=== PATIENT | male | born 1960 | race Caucasian/White ===

== ENCOUNTER 2024-11-21 21:50 | Emergency (ER) | payer MEDICARE, OTHER, SELFPAY ==
[2024-11-21] VITALS (15 sets, daily range): BP systolic 126–152; BP diastolic 77–86; PULSE 77–101; TEMP 36.7; O2SAT 92–99; BMI 39.3
--- NOTE | 2024-11-21 22:00 | ECG_ITS ---
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 Measurements Intervals Reading Rate: 77 P: 20 MT: 170 QRS: -42 QRSD: 86 T: 60 QT: 358 QTc: 390 Interpretive Statements 1100 Sinus rhythm 1108 Marked sinus arrhythmia 3234 Anteroseptal myocardial infarction, age undetermined 7200 Abnormal left axis deviation 9150 abnormal ECG No previous ECG available for comparison Electronically Signed On 11-22-2024 18:30:13 EDT by ELIEZER CHACON M.D.
--- NOTE | 2024-11-21 22:23 | XR_ITS ---
The [place] [id number] Patient Name: BRAVO DONAHUE MRN: [id number] date: 1960 Sex: M Assigned Patient Location: ED.MAIN Current Patient Location: ED.MAIN Accession/Order Number: [id number] Exam Date: 11/21/2024 23:24 Report Date: 11/21/2024 23:25 At the request of: DIANA HAYWOOD DO Procedure: XR chest 1V PA CHEST: CLINICAL HISTORY: cp COMPARISON: None The heart is normal in size. The lungs are clear. The pulmonary vasculature is normal. Mediastinum and hilar regions are unremarkable. No pleural effusions are seen. Visualized bones are intact. XR/XR chest 1V IMPRESSION: NEGATIVE ACUTE PLEURAL-PARENCHYMAL DISEASE Impression dictated by: Johnson Cuenca M.D. 11/21/2024 11:25 PM Dictation Location: [place] [address] Electronically authenticated by: [id number] Y Date: 11/21/2024 23:25
--- NOTE | 2024-11-21 22:24 | CT_ITS ---
The [address] [address] Patient Name: BRAVO DONAHUE MRN: [id number] date: 1960 Sex: M Assigned Patient Location: ED.MAIN Current Patient Location: ED.MAIN Accession/Order Number: [id number] Exam Date: 11/21/2024 23:25 Report Date: 11/21/2024 23:29 At the request of: DIANA HAYWOOD DO Procedure: CT abdomen pelvis w con CT ABDOMEN AND PELVIS WITH INTRAVENOUS CONTRAST: CLINICAL HISTORY: abdominal pain COMPARISON: None TECHNIQUE: Spiral images were obtained through the abdomen and pelvis following the administration of intravenous contrast. This CT exam was performed using one or more following dose reduction techniques: Automated exposure control, adjustment of the mA and/or kV according to patient size, or use of iterative reconstruction technique. FINDINGS: Lung Bases: [Lung bases are clear.] Organs:Liver, spleen, gallbladder, adrenals, and pancreas are unremarkable. Bilateral renal cysts. Bilateral parapelvic cysts. No definite hydronephrosis. Kidneys otherwise symmetric in size and enhancement.[ GI: Mild retained stool throughout the colon. No bowel obstruction. Colonic diverticulosis. No CT findings acute diverticulitis. Appendix unremarkable.[Small hiatal hernia. Pelvis:[Bladder unremarkable. Prostate unremarkable.] Peritoneum/Retroperitoneum:No free air or free fluid. Aortic vascular disease. No bulky adenopathy.[ Abd wall/Bones:Posterior changes L5-S1. Anterolisthesis L5 on S1 noted measuring 8 mm. Moderate severe foraminal narrowing at L5-S1. There are junction degenerative changes at L4-[address]/CT abdomen pelvis w con IMPRESSION: Negative acute inflammatory process or bowel obstruction. Colonic diverticulosis. Impression dictated by: Johnson Cuenca M.D. 11/21/2024 11:29 PM Dictation Location: [place] [address] Electronically authenticated by: [id number] Y Date: 11/21/2024 23:29
--- NOTE | 2024-11-21 22:26 | ED_ITS ---
HPI HPI - General Adult General Chief complaint: Nausea/Vomiting/Diarrhea Stated complaint: WEAKNESS Time Seen by Provider: 11/21/24 22:03 Source: patient Mode of arrival: Wheelchair Limitations: no limitations History of Present Illness HPI narrative: The patient is a 64-year-old male from [place] who has a history of diabetes mellitus. He is presenting to the emergency department today for not feeling well. The patient stated he woke up in his normal state of health and it was not until 3 PM this afternoon that he started to feel poorly. His symptoms included global weakness without any focal neurologic deficits. The patient states that he feels shaky. He then developed nausea and has vomited 4 times prior to coming to the emergency department. He stated he was retching very hard his first 2 episodes. By the time he vomited the fourth time there was little blood flecks present. Patient denied any diarrhea. Since being in the emergency department for 10 minutes, he has developed pain in the right side of his abdomen. It is diffusely located on the right side. It does not radiate or move anywhere. Pain is mild to moderate in severity. Unknown what makes it wor se. Nothing makes it better. Patient denies any fever or chills. No sick contacts. He has just recently traveled here from [place]. Prior to today he has been in his usual state of health. His blood sugars has been running per his normal. He did eat Barbara's feel she is rooming that it was secondary to his diabetes. Related Data Previous Rx's ?Medication ?Instructions ?Recorded ondansetron 4 mg disintegrating 4 mg PO Q4H PRN nausea and 11/22/24 tablet vomiting #14 tabs pantoprazole 40 mg tablet,delayed 40 mg PO DAILY 4 wee ks #28 tabs 11/22/24 release (Protonix) Allergies Allergy/AdvReac Type Severity Reaction Status Date / Time metformin Allergy Intermediate Diarrhea Verified 11/21/24 22:05 Review of Systems ROS Narrative 10 Systems were reviewed, and unless not ed in the HPI, all other systems are reviewed, unremarkable, or noncontributory. PFS PFS Social History Little interest or pleasure in doing things: not at all Feeling down, depressed, or hopeless: not at all Exam Narrative Exam Narrative: Prior to examining the patient, I have washed with hospital approved and provided Antiseptic Hand Equity Analyst and have also applied gloves.? Prior to touching the patient, I asked for consent to examine the patient.? General: Alert and oriented, well nourished, mild distress. obese. warm to touch Eye: PERRL, EOMI, normal conjunctiva. HENT: Normocephalic, normal hearing, moist oral mucosa, no scleral icterus, no sinus tenderness. Neck: Supple, non-tender, no carotid bruits, no JVD, no lymphadenopathy. Lungs: Clear to auscultation and percussion, non-labored respiration. Heart: Normal rate, regular rhythm, no murmur, gallop. +2 pitting edema to the knees bilaterally Abdomen: Soft, non-tender, non-distended, normal bowel sounds, no masses. Musculoskeletal: Normal range of motion and strength, no tenderness or swelling. Skin: Skin is warm, dry and pink, no rashes or lesions. + gynecomastia Neurologic: Awake, alert, and oriented X3, CN II-XII intact. Psychiatric: Cooperative, appropriate mood and affect.? Following the conclusion of the examination, I have washed my hands thoroughly after removing examination gloves. Constitutional Vital Signs, click to edit/add: Last Vital Signs Temp 98.0 F 11/21/24 21:53 Pulse 96 H 11/21/24 23:40 Resp 23 H 11/21/24 23:40 BP 126/78 11/21/24 23:31 Pulse Ox 92 L 11/21/24 23:40 O2 Del Method Room Air 11/21/24 21:53 Course Course Hospital Course: 22:29 Patient was evaluated and we are beginning commencing the sepsis protocol. I am starting this protocol based on his tachycardia and tachypnea. Will start with giving the patient a 1 L lactated ringer bolus and add on Zofran for nausea and Protonix for his gastritis. Laboratories pending at this time. Reevaluation(s) Reevaluation #1: I go back in and reassessed the patient. I talked to him about all of his results. They are reassuring. Unfortunately I do not know why the patient had his symptoms today. Perhaps it was food poisoning. Perhaps these developing some sort of viral exanthem. The patient's abdominal pain may have been some enteritis forming. But I am honestly unclear as to why he suddenly felt weak. We have given the patient a liter of lactated Ringer's. We have given him some Zofran and Protonix. Patient is reporting that he feels better. At this time the patient does feel safe going home. I am in a call in a prescription for him at the [facility] for him. His sister is at bedside. She will bring him back if symptoms worsen or change. Time: 00:37 Vital Signs Vital signs: Vital Signs Temperature 98.0 F 11/21/24 21:53 Pulse Rate 93 H 11/21/24 21:53 Respiratory Rate 16 11/21/24 21:53 Blood Pressure 152/86 H 11/21/24 21:53 Pulse Oximetry 97 11/21/24 21:53 Oxygen Delivery Method Room Air 11/21/24 21:53 Temperature 98.0 F 11/21/24 21:53 Pulse Rate 96 H 11/21/24 23:40 Respiratory Rate 23 H 11/21/24 23:40 Blood Pressure 126/78 11/21/24 23:31 Pulse Oximetry 92 L 11/21/24 23:40 Oxygen Delivery Method Room Air 11/21/24 21:53 Medical Decision Making [facility] Narrative Medical decision making narrative: Additional historians: None Reviewing old medical records: None available discussion with other healthcare providers: None The patient in summary presented for feeling acutely weak and having episodes of nausea and vomiting. Patient had no other symptoms upon presentation. Interventions: 1 L lactated ringer bolus, Zofran 4 mg IV push, and Protonix 40 mg IV push Disposition: Patient will be discharged home in stable condition with his sister. He will pick his prescription for Zofran and Protonix tomorrow at [facility]. Patient will return if symptoms worsen or change. Differential Diagnosis Differential Diagnosis: Gastroenteritis, myocardial infarction, bowel obstruction, electrolyte imba Medical Records Medical records reviewed: Yes I reviewed the patient's medical records Lab Data Lab results reviewed: Yes I reviewed the patient's lab results Lab results narrative: I would expect if the patient was having a myocardial infarction that his troponin would have been elevated since his symptoms began at 3 PM. The patient's heart score is a 3 and the patient does not need to stay for presumptive care for myocardial infarction as I do not think that that is what is causing his symptoms today. Labs: Lab Results 11/21/24 11/21/24 Range/Units 22:10 23:52 WBC 10.3 (4.0-11.0) 10^3/uL RBC 4.72 (4.70-6.10) 10^6/uL Hgb 13.8 L (14.0-18.0) g/dL Hct 39.1 L (42.0-54.0) % MCV 82.8 (80.0-94.0) fL MCH 29.2 (25.9-34.0) pg MCHC 35.3 H (29.9-35.2) g/dL RDW 13.7 (11.0-15.0) % Plt Count 154 (150-450) 10^3/uL MPV 11.2 (9.5-13.5) fL Neut % (Auto) 88.3 H (43.0-75.0) % Lymph % (Auto) 7.0 L (20.5-60.0) % [place] % (Auto) 4.0 (1.7-12.0) % Eos % (Auto) 0.0 L (0.9-7.0) % Baso % (Auto) 0.4 (0.2-2.0) % Neut # (Auto) 9.1 H (1.4-6.5) 10^3/uL Lymph # (Auto) 0.7 L (1.2-3.8) 10^3/uL [place] # (Auto) 0.4 (0.3-0.8) 10^3/uL Eos # (Auto) 0.0 (0.0-0.7) 10^3/uL Baso # (Auto) 0.0 (0.0-0.1) 10^3/uL Abs Immat Gran (auto) 0.03 (0.00-0.03) 10^3/uL Imm/Tot Granulo (auto) 0.3 (0.0-0.5) % Sodium 141 (136-145) mmol/L Potassium 3.9 (3.5-5.1) mmol/L Chloride 101 (98-107) mmol/L Carbon Dioxide 27.3 (21.0-32.0) mmol/L Anion Gap 16.6 BUN 19.0 H (7.0-18.0) mg/dL Creatinine 1.13 (0.70-1.30) mg/dL Est GFR ( Amer) >60 (>=60 mL/min/1.73m^2) Est GFR (Non-Af Amer) >60 (>=60 mL/min/1.73m^2) BUN/Creatinine Ratio 16.8 Glucose 189 H (74-106) mg/dL Lactate 3.5 H* (0.4-2.0) mmol/L Calcium 9.6 (8.5-10.1) mg/dL Magnesium 1.7 L (1.8-2.4) mg/dL Total Bilirubin 1.1 H (0.2-1.0) mg/dL AST 28 (15-37) U/L ALT 29 (16-63) U/L Alkaline Phosphatase 122 H (46-116) U/L Troponin I High Sens 6.3 (4.0-76.1) pg/mL Total Protein 7.7 (6.4-8.2) g/dL Albumin 4.2 (3.4-5.0) g/dL Globulin 3.5 g/dL Albumin/Globulin Ratio 1.2 Urine Color Yellow (YELLOW) Urine Clarity Clear (CLEAR) Urine pH 6.0 (5.0-9.0) Ur Specific Dalton 1.010 (1.005-1.025) Urine Protein Negative (NEG/TRACE) mg/dL Urine Glucose (UA) 100 A (NEGATIVE) mg/dL Urine Ketones 15 A (NEGATIVE) mg/dL Urine Occult Blood Negative (NEGATIVE) Urine Nitrite Negative (NEGATIVE) Urine Bilirubin Negative (NEGATIVE) Urine Urobilinogen 0.2 (0.2-1.0) EU/dL Ur Leukocyte Esterase Negative (NEGATIVE) Imaging Data CT scan - abdomen: Radiologist's impression: ITS Impressions Chest X-Ray 11/21/24 22:23 IMPRESSION: NEGATIVE ACUTE PLEURAL-PARENCHYMAL DISEASE Impression dictated by: Johnson Cuenca M.D. 11/21/2024 11:25 PM Dictation Location: [place] [address] Electronically authenticated by: [id number] Y Date: 11/21/2024 23:25 Abdomen/Pelvis CT 11/21/24 22:24 IMPRESSION: Negative acute inflammatory process or bowel obstruction. Colonic diverticulosis. Impression dictated by: Johnson Cuenca M.D. 11/21/2024 11:29 PM Dictation Location: [place] [address] Electronically authenticated by: [id number] Y Date: 11/21/2024 23:29 ECG Data Attestation: I personally reviewed and interpreted this ECG as follows: Interpretation: Twelve-lead EKG: Twelve-lead EKG reveals sinus rhythm with a ventricular to 77 bpm with a OH interval and QRS duration within normal notes. QTc is not prolonged. Star is normal. Summary: Normal EKG. Discharge Plan Discharge Chief Complaint: Nausea/Vomiting/Diarrhea Clinical Impression: Vomiting, Weakness Patient Disposition: Home, Self-Care Time of Disposition Decision: 00:39 Condition: Good Mode of Transportation: Private Vehicle Prescriptions / Home Meds: New ondansetron 4 mg tablet,disintegrating 4 mg PO Q4H PRN (Reason: nausea and vomiting) Qty: 14 0RF pantoprazole [Protonix] 40 mg tablet,delayed release (DR/EC) 40 mg PO DAILY 28 Days Qty: 28 0RF Print Language: Portuguese Instructions: Acute Nausea and Vomiting (ED), Weakness (ED) Additional Instructions: If any of his symptoms get worse or change please do not hesitate to bring him back to the emergency department for further evaluation and treatment. I really appreciate your time and patience in the emergency department today. I am pleased that he is feeling a little better. I regret that we did not find an exact cause for what is going on today. However, we often do not want what ever diagnosis I have to give you is usually that is generally more serious. Again, if he gets worse or something changes were delighted to see him again. Otherwise thank you for trusting me with his care and I hope he has a safe travels home. Referrals: Physician,Non-Staff, MD [Primary Care Provider] - 1 week
[2024-11-21 22:32] LABS: Hematocrit 39.1 % (42.0-54.0); Hemoglobin 13.8 g/dL (14.0-18.0); Immature Granulocytes Abs Auto 0.03 10^3/uL (0.00-0.03); Immature Granulocytes Pct Auto 0.3 % (0.0-0.5); Lymphocytes Absolute Auto 0.7 10^3/uL (1.2-3.8); Mean Corpuscular HGB Conc 35.3 g/dL (29.9-35.2); Mean Corpuscular Hemoglobin 29.2 pg (25.9-34.0); Mean Corpuscular Volume 82.8 fL (80.0-94.0); Platelet Count 154 10^3/uL (150-450); Red Blood Count 4.72 10^6/uL (4.70-6.10); White Blood Count 10.3 10^3/uL (4.0-11.0)
[2024-11-21] MEDS: PANTOPRAZOLE SODIUM 40 MG VIAL IV (22:39)
[2024-11-21 22:45] LABS: Anion Gap 16.6
[2024-11-21 22:48] LABS: Alanine Aminotransferase 29 U/L (16-63); Albumin Globulin Ratio 1.2; Albumin Level 4.2 g/dL (3.4-5.0); Alkaline Phosphatase 122 U/L (46-116); Aspartate Amino Transferase 28 U/L (15-37); Blood Urea Nitrogen 19.0 mg/dL (7.0-18.0); Calcium 9.6 mg/dL (8.5-10.1); Carbon Dioxide 27.3 mmol/L (21.0-32.0); Chloride 101 mmol/L (98-107); Estimated GFR (African America >60 (>=60 mL/min/1.73m^2); Estimated GFR (Non-African Ame >60 (>=60 mL/min/1.73m^2); Globulin 3.5 g/dL; Glucose 189 mg/dL (74-106); Magnesium 1.7 mg/dL (1.8-2.4); Potassium 3.9 mmol/L (3.5-5.1); Sodium 141 mmol/L (136-145); Total Protein 7.7 g/dL (6.4-8.2)
[2024-11-21 22:54] LABS: Lactate/Lactic Acid 3.5 mmol/L (0.4-2.0)
[2024-11-22 00:01] LABS: Glucose Urine UA 100 mg/dL (NEGATIVE)
[2024-11-22 00:57] VITALS: BP 142/91; PULSE 95; O2SAT 97
== END 2024-11-22 01:01 | disposition home or self-care (01) ==
PROVIDERS: Emergency Provider Emergency Medicine; PCP Family Medicine
DX: R11.10 Vomiting, unspecified (principal); R53.1 Weakness; E11.9 Type 2 diabetes mellitus without complications; K57.30 Diverticulosis of large intestine without perforation or abscess without bleeding
CPT/HCPCS: 36415; 71045; 74177; 80053; 81003; 83605; 83735; 84484; 85025; 87040; 93005; 96361; 96374; 96375; 99285; J2405; Q9967